=== PATIENT | male | born 1950 | race Caucasian/White ===

== ENCOUNTER 2017-08-15 10:15 | Inpatient (IN) | payer BC ==
[~2017-08-15] VITALS: Ht 180.3 cm; Wt 102.8 kg
[2017-08-15] MEDS ORDERED: NORVASC5 MG PO (10:52)
[2017-08-15] MEDS ORDERED: ASPIR 8181 M1 PO (10:53)
[2017-08-15 10:59] LABS: EOSINOPHIL (%) 0.3 % (0-5); HEMATOCRIT 43.8 % (38.0-50.0); IMMATURE GRANULOCYTE (%) 0.2 % (0.0-0.7); INSTRUMENT ABS NEUTROPHIL CT 4.3 K/uL; LYMPHOCYTE COUNT 1.2 K/uL (1.0-2.8); MCH 31.1 PG (29.0-34.0); MCHC 34.7 G/DL (30.0-36.0); MCV 89.6 FL (86-99); MEAN PLAT.VOLUME 11.6 uM^3 (9.0-12.4); MONOCYTE (%) 7.1 % (3-12); MONOCYTE COUNT 0.4 K/uL (0-0.8); NEUTROPHIL (%) 72.2 % (45-76); NEUTROPHIL COUNT 4.3 K/uL (1.8-6.4); PLATELET COUNT 197 K/uL (156-360); RBC DIS.WIDTH-CV 12.4 % (11.8-14.6); RBC DIS.WIDTH-SD 40.6 % (39-53); RED BLOOD COUNT 4.89 M/uL (4.00-5.50); WHITE BLOOD COUNT 5.9 K/uL (4.1-10.2)
[2017-08-15 11:03] LABS: PROTHROMBIN TIME 11.9 SEC (10.2-12.9)
[2017-08-15 11:06] LABS: PTT 30.7 SEC (25-37)
[2017-08-15 11:13] LABS: CHLORIDE 109 mEq/L (99-109); POTASSIUM 4.4 mEq/L (3.7-5.4); SODIUM 141 mEq/L (136-147)
[2017-08-15 11:14] LABS: GLUCOSE 102 mg/dL (70-99)
[2017-08-15 11:16] LABS: ANION GAP 8 MEQ/L (2-14)
[2017-08-15 11:18] LABS: GFR ESTIMATE (CALCULATED) > 59 mL/min/
[2017-08-15 11:19] LABS: TROP-I INTERPRETATION NEGATIVE; TROPONIN-I 0.03 ng/mL (0.0-0.30); UREA NITROGEN (BUN) 16 mg/dL (9-23)
[2017-08-15] MEDS ORDERED: DEXILANT60 MG PO (11:51)
[2017-08-15 12:25] VITALS: BP 159/78
[2017-08-15 12:59] LABS: SAMPLE HEMOLYSIS CHECK 0; SAMPLE ICTERIC CHECK 0; SAMPLE LIPEMIA CHECK 0
[2017-08-15 13:05] LABS: HDL CHOLESTEROL 31 MG/DL (Desirable>=40); LDL CHOLESTEROL 63 mg/dL (Desirable<100); NON-HDL CHOLESTEROL 86 mg/dL (Desirable<160); TOTAL CHOLESTEROL 117 mg/dL (Desirable<200); TRIGLYCERIDES 114 MG/DL (Normal: <150)
[2017-08-15 13:49] LABS: TROP-I INTERPRETATION NEGATIVE; TROPONIN-I 0.05 ng/mL (0.0-0.30)
[2017-08-15 17:02] LABS: TROP-I INTERPRETATION INDETERMINATE; TROPONIN-I 0.48 ng/mL (0.0-0.30)
[2017-08-15 18:29] VITALS: BP 135/68
[2017-08-15 19:47] VITALS: BP 117/62
[2017-08-15 21:43] LABS: TROP-I INTERPRETATION POSITIVE; TROPONIN-I 5.57 ng/mL (0.0-0.30)
[2017-08-15 22:25] VITALS: BP 116/64
[2017-08-16 02:45] VITALS: BP 116/68
[2017-08-16 07:23] LABS: TROP-I INTERPRETATION POSITIVE
[2017-08-16 07:27] VITALS: BP 123/75
[2017-08-16] MEDS ORDERED: LOSARTAN POTASS25 MG PO (09:07)
[2017-08-16] MEDS ORDERED: ATORVASTATIN CA40 MG PO (09:08)
[2017-08-16 10:49] VITALS: BP 105/62
[2017-08-16 15:40] VITALS: BP 136/71
[2017-08-16 20:49] VITALS: BP 104/76
[2017-08-16 23:59] VITALS: BP 100/54
[2017-08-17 04:56] VITALS: BP 96/51
[2017-08-17 07:48] VITALS: BP 113/61
[2017-08-17 12:38] VITALS: BP 110/56
[2017-08-17] MEDS ORDERED: CLOPIDOGREL75 MG PO (14:37)
[2017-08-17] MEDS ORDERED: LOPRESSOR25 MG PO (14:37)
[2017-08-17] MEDS ORDERED: NITROSTAT0.4 MG SL (14:37)
[2017-08-17] MEDS ORDERED: IMDUR30 MG PO (14:37)
[2017-08-17] MEDS ORDERED: ATORVASTATIN CA80 MG PO (14:37)
== END 2017-08-17 16:33 | disposition home or self-care (01) | DRG 282 ==
LOC: EME 10:15 → EDOF 11:35 → 5WEST 11:35 → ENRESERV 11:37 → 5WEST 12:50 → ENRESERV 14:04 → 5WEST 14:05 → 4EAST 15:52 → 5WEST 15:52 → ENRESERV 15:54 → 4EAST 18:04
PROVIDERS: Emergency Medicine; Hospitalist; Internal Medicine Cardiovascular Disease
DX: I21.4 Non-ST elevation (NSTEMI) myocardial infarction (principal); I25.110 Atherosclerotic heart disease of native coronary artery with unstable angina pectoris; I10 Essential (primary) hypertension; K21.9 Gastro-esophageal reflux disease without esophagitis; E78.5 Hyperlipidemia, unspecified; I25.2 Old myocardial infarction; Z95.5 Presence of coronary angioplasty implant and graft; Z87.891 Personal history of nicotine dependence; Z79.82 Long term (current) use of aspirin; Z88.2 Allergy status to sulfonamides
CPT/HCPCS: 71010; 80048; 80061; 84484; 85025; 85347; 85610; 85730; 93005; 93306; 94799; 99281; 99284; C1725; C1769; C1887; J1644; J2250; J2270; J3010; J3246; J7040